=== PATIENT | female | born 1950 | race Caucasian/White ===

== ENCOUNTER 2017-07-24 19:10 | Emergency (ER) | payer OTHER ==
[~2017-07-24] VITALS: Ht 157.5 cm; Wt 118.0 kg
[2017-07-24 19:12] VITALS: BP 181/73; PULSE 58; RESP 18; TEMP 98.5; O2SAT 98
[2017-07-24] MEDS ORDERED: NORC5TAB PO (20:00)
[2017-07-24] MEDS ORDERED: GABA300C5 PO (20:00)
[2017-07-24] MEDS ORDERED: PRED10 PO (20:00)
--- NOTE | 2017-07-24 20:01 | PD ---
HPI Chief Complaint: Skin Problem Time Seen by Provider: 19:37 Travel History International Travel<30 days: No Contact w/Intl Traveler<30days: No Traveled to known affect area: No History of Present Illness HPI 67-year-old female complains of painful rash the left forehead, left side of scalp, the left side of the nose and irritation to the left eye. Patient states that she started having painful rash about 4 days ago. Patient states that the painful rash spread to the left sided nose and the left eye since yesterday. Patient was seen at [facility] yesterday and given prescription for acyclovir. Patient states that she had persistent burning pain on left side of forehead, left-sided scalp and left-sided nose and irritation to the left eye with tearing from the left eye. Patient denies any fever chills. Patient denies any other medical complaint. Patient has history of CAD, GERD, breast CVA, hyperlipidemia, CVA, diabetes, hypertension, hypothyroidism and gastroparesis. PFSH Past Medical History Cancer: Yes (breast CA) High Cholesterol: Yes Cerebrovascular Accident: Yes Coronary Artery Disease: Yes Diabetes: Yes Patient Takes Glucophage: No Diminished Hearing: No Gastrointestinal Disorders: Yes (gastrioproesis) GERD: Yes Hypertension: Yes Sleep Apnea: Yes Thyroid Disease: Yes (hypothyriod) Tetanus Vaccination: < 5 Years Influenza Vaccination: Yes ?: Not LMP: menapause Past Surgical History Gynecologic Surgery: Yes (breast CA, recontrution) Social History Alcohol Use: No Tobacco Use: No Substance Use: No Allergies-Medications (Allergen,Severity, Reaction): Coded Allergies: Fpzaebb-Ylv-Min Reductase Inhibitor (Verified Allergy, Severe, 07/24/17) swelling codeine (Verified Allergy, Severe, 07/24/17) nasuea metformin (Verified Allergy, Severe, 07/24/17) gastroporisis Sulfa (Sulfonamide Antibiotics) (Verified Allergy, Unknown, 07/24/17) swelling Uncoded Allergies: food (fish) (Allergy, Severe, 07/24/17) rash Review of Systems General / Constitutional: No: Fever Eyes: No: Visual changes HENT: No: Headaches Cardiovascular: No: Chest Pain or Discomfort Respiratory: No: Shortness of Breath Gastrointestinal: No: Abdominal Pain Genitourinary: No: Dysuria Musculoskeletal: No: Pain Skin: Positive Rash Neurologic: No: Weakness Psychiatric: No: Depression Endocrine: No: Polydipsia Hematologic/Lymphatic: No: Easy Bruising Physical Exam Narrative GENERAL: Well-nourished, well-developed patient. SKIN: Focused skin assessment warm/dry. Patient has patchy rash on the left forehead and a left-sided nose. No blister lesion noted. HEAD: Normocephalic. EYES: No scleral icterus. No injection or drainage. Left conjunctiva mildly erythematous. Clear discharge noted. No dendritic lesion noted on the left cornea. NECK: Supple, trachea midline. No JVD or lymphadenopathy. CARDIOVASCULAR: Regular rate and rhythm without murmurs, gallops, or rubs. RESPIRATORY: Breath sounds equal bilaterally. No accessory muscle use. GASTROINTESTINAL: Abdomen soft, non-tender, nondistended. MUSCULOSKELETAL: No cyanosis, or edema. BACK: Nontender without obvious deformity. No CVA tenderness. Neurologic exam normal. Data Data Last Documented VS Vital Signs Date Time Temp Pulse Resp B/P (MAP) Pulse Ox O2 Delivery O2 Flow Rate FiO2 07/24/17 19:12 98.5 58 18 181/73 (109) 98 Room Air MDM Medical Decision Making Medical Screen Exam Complete: Yes Emergency Medical Condition: Yes Differential Diagnosis Differential diagnosis including shingles, neuralgia. Left eye corneal involvement. Narrative Course 67-year-old female with painful rash on the left side of forehead, left side of the scalp, involving the left-sided nose and left eye irritation. Diagnosis Primary Impression: Shingles Qualified Codes: B02.31 - Zoster conjunctivitis Patient Instructions: General Instructions Additional Instructions: Continue with acyclovir as directed. Patient's diabetic. I would start patient on low-dose of prednisone, gabapentin, hydrocodone. Advised patient to Accu-Chek blood sugar daily. 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 Return if worse. Med/Other Pt SpecificInfo: Prescription(s) given Scripts Hydrocodone-Acetaminophen ([place]) 5 Mg-325 Mg Tab 1 TAB PO Q6H Y for PAIN, #20 TAB 0 Refills Prov: Vitor Birch MD 07/24/17 Gabapentin (Gabapentin) 300 Mg Cap 300 MG PO TID, #30 CAP 0 Refills Prov: Vitor Birch MD 07/24/17 Prednisone (Prednisone) 10 Mg Tab 10 MG PO DAILY, #7 TAB 0 Refills Prov: Vitor Birch MD 07/24/17 Disposition: 01 DISCHARGE HOME Condition: Stable Vitor Birch MD Jul 24, 2017 20:00
[2017-07-24] MEDS ORDERED: ACETAMINOPHEN/HYDROcodone 325 MG/5 MG TAB PO ONE (20:30)
== END 2017-07-24 20:33 | disposition home or self-care (01) ==
LOC: NEPD 19:10
DX: B02.9 Zoster without complications (principal); I25.10 Atherosclerotic heart disease of native coronary artery without angina pectoris; K21.9 Gastro-esophageal reflux disease without esophagitis; E78.5 Hyperlipidemia, unspecified; I10 Essential (primary) hypertension; E03.9 Hypothyroidism, unspecified; E11.43 Type 2 diabetes mellitus with diabetic autonomic (poly)neuropathy; K31.84 Gastroparesis; E78.00 Pure hypercholesterolemia, unspecified
CPT/HCPCS: 99283

== ENCOUNTER 2017-10-19 18:13 | Emergency (ER) | payer OTHER ==
[~2017-10-19] VITALS: Ht 157.5 cm; Wt 130.0 kg
[~2017-10-19 18:13] MED LIST: GABA300C5 PO; NORC5TAB PO; PRED10 PO
[2017-10-19 18:22] VITALS: BP 177/79; PULSE 92; RESP 18; TEMP 98.4; O2SAT 96
[2017-10-19] MEDS ORDERED: RANI150T PO (18:46)
[2017-10-19] MEDS ORDERED: PROP1CAP3 PO (18:46)
[2017-10-19] MEDS ORDERED: NOVOLOGP2 SQ (18:46)
[2017-10-19] MEDS ORDERED: FURO40TA PO (18:46)
[2017-10-19] MEDS ORDERED: CLOP75TA PO (18:46)
[2017-10-19] MEDS ORDERED: FELO2.5T PO (18:46)
[2017-10-19] MEDS ORDERED: LOSA100T PO (18:46)
[2017-10-19] MEDS ORDERED: INSU1INJ14 SQ (18:46)
[2017-10-19] MEDS ORDERED: POTA10TA2 PO (18:46)
[2017-10-19] MEDS ORDERED: LEVO100T5 PO (18:46)
[2017-10-19] MEDS ORDERED: MACR100C2 PO (18:46)
== END 2017-10-19 19:22 | disposition left against medical advice (07) ==
LOC: NEPD 18:13
DX: Z53.21 Procedure and treatment not carried out due to patient leaving prior to being seen by health care provider (principal)
CPT/HCPCS: 99281